=== PATIENT | male | born 1990 | race Two or more races ===

== ENCOUNTER 2025-09-19 14:25 | Emergency (ER) | payer OTHER ==
[~2025-09-19] VITALS: Ht 185.4 cm; Wt 95.3 kg
[2025-09-19 15:33] VITALS: BP 143/86; O2SAT 97
[2025-09-19] MEDS ORDERED: FAMOTIDINE/PF 20 MG/2 ML VIAL IV ONE (17:00)
[2025-09-19] MEDS ORDERED: ORPHENADRINE CITRATE 30 MG/ML AMPUL IM ONE (17:00)
[2025-09-19] MEDS ORDERED: KETOROLAC TROMETHAMINE 30 MG VIAL IV ONE (17:00)
[2025-09-19] MEDS ORDERED: 0.9 % SODIUM CHLORIDE 1,000 ML IV ONE (17:00)
[2025-09-19 18:26] LABS: BASO % 0.5 % (0.1-1.2); EOS # 0.18 (0.04-0.54); EOS % 2.9 % (0.7-7.0); LYMPH # 1.28 (1.18-3.74); LYMPH % 20.4 % (19.3-53.1); MEAN PLATELET VOLUME 9.40 fl (9.4-12.4); MONO # 0.80 (0.24-0.82); NEUT # 3.95 (1.56-6.13); NEUT % 62.9 % (34.0-71.1); RED CELL DISTRIBUTION WIDTH 12.3 % (11.6-14.4)
[2025-09-19 18:32] LABS: MONO % 12.7 % (4.7-12.5)
[2025-09-19 19:14] LABS: ALT/SGPT 76.0 U/L (12-78); AST/SGOT 32.0 U/L (15-37); BILIRUBIN TOTAL 0.73 mg/dL (0.3-1.2); BUN CREA RATIO 11.0 (7.0-25.0); CREATININE SERUM 0.96 mg/dL (0.70-1.30); GFR 88.63; GLOBULINA 3.8 G/DL (2.4-3.5); GLUCOSE FASTING 95.0 mg/dL (65-100); OSMOLALITY SERUM 275.0 MOSM/KG (275-295)
[2025-09-19 20:03] LABS: URINE APPEARANCE Clear; URINE BILIRRUBIN Small (NEGATIVE); URINE BLOOD Negative; URINE COLOR Dark Yellow; URINE GLUCOSE Negative (NEGATIVE); URINE KETONE Trace (NEGATIVE); URINE LEUKOCYTE Negative; URINE NITRATE Negative; URINE PROTEIN 30 (NEGATIVE); URINE UROBILINOGEN 1.0 E.U./dl
[2025-09-19 20:08] LABS: URINE BACTERIA 7.1 uL (0.0-1933); URINE EPITHELIAL CELLS 6.7 uL (0.0-38.8); URINE RBC 11.5 uL (0.0-20.8); URINE WBC 1.9 uL (0.0-23.2)
[2025-09-19 20:22] LABS: URINE CAST 0.87 uL (0.0-1.40)
[2025-09-19] MEDS ORDERED: NORFLEX100MG PO (21:23)
[2025-09-19] MEDS ORDERED: DICLOFENAC SODI50 MG PO (21:23)
== END 2025-09-19 21:59 | disposition home or self-care (01) ==
LOC: ER 14:25
PROVIDERS: General Practice
DX: M54.89 Other dorsalgia (principal)

== ENCOUNTER → 2025-09-19 | Emergency (ER) | payer OTHER ==
[~2025-09-19] VITALS: Ht 185.4 cm; Wt 95.3 kg
[~2025-09-19] MED LIST: DICLOFENAC SODI50 MG PO; NORFLEX100MG PO
[2025-09-19 11:16] VITALS: BP 117/74; O2SAT 97
== END | disposition left against medical advice (07) ==
LOC: ER 10:12
DX: Z53.21 Procedure and treatment not carried out due to patient leaving prior to being seen by health care provider (principal)